=== PATIENT | male | born 2000 | race Caucasian/White ===

== ENCOUNTER 2019-06-04 09:32 | Emergency (ER) | payer OTHER ==
[~2019-06-04] VITALS: Ht 177.8 cm; Wt 72.1 kg
[2019-06-04 10:53] LABS: BASO % 0.6 % (0.0-1.0); EOS # 0.1 10^3/uL (0.0-0.5); EOS % 1.2 % (0.0-3.0); HEMATOCRIT 43.9 % (42.0-52.0); HEMOGLOBIN 14.7 g/dl (13.5-17.5); LYMPH % 38.7 % (24.0-44.0); MEAN CORPUSCULAR HEMOGLOBIN 29.6 pg (27.0-33.0); MEAN CORPUSCULAR HGB CONC 33.5 g/dl (32.0-36.5); MEAN CORPUSCULAR VOLUME 88.3 fl (80.0-96.0); MONO # 0.4 10^3/uL (0.0-0.8); MONO % 7.9 % (0.0-5.0); NEUTROPHILS # 2.6 10^3/uL (1.5-8.5); NEUTROPHILS % 51.4 % (36.0-66.0); PLATELET COUNT, AUTOMATED 247 10^3/uL (150-450); RED BLOOD COUNT 4.97 10^6/uL (4.30-6.10); WHITE BLOOD COUNT 5.1 10^3/uL (4.0-10.0)
[2019-06-04 11:15] LABS: ERYTHROCYTE SEDIMENTATION RATE 4 mm/hr (0-15)
[2019-06-04 11:17] LABS: BLOOD UREA NITROGEN 14 MG/DL (7-18); C REACTIVE PROTEIN QUANTITATIV < 0.30 MG/DL (0.00-0.30); CALCIUM LEVEL 9.4 MG/DL (8.5-10.1); CARBON DIOXIDE LEVEL 32 MEQ/L (21-32); CHLORIDE LEVEL 104 MEQ/L (98-107); CK-MB VALUE MASS < 1.0 NG/ML (<3.6); CPK CREATINE PHOSPHOKINASE 79 U/L (39-308); GLUCOSE, FASTING 83 MG/DL (70-100); MB/CK RELATIVE INDEX 1.27 (< OR =4); POTASSIUM SERUM 4.2 MEQ/L (3.5-5.1); SODIUM LEVEL 140 MEQ/L (136-145); TROPONIN I < 0.02 NG/ML (< 0.10)
--- NOTE | 2019-06-04 11:44 | REP ---
Chest x-ray: Two views. History: Chest pain . Comparison study: No comparison . Findings: The lungs are well inflated and free of infiltrate. The pleural angles are sharp. The heart size is normal. Pulmonary vasculature is not increased. No significant bony abnormality is seen. Impression: Negative chest x-ray. Electronically Signed by Carroll Peerz MD 06/04/2019 11:35 A
[2019-06-04] MEDS ORDERED: IBUP80TA PO (12:15)
[2019-06-04 12:24] VITALS: BP 120/78
--- NOTE | 2019-06-04 15:23 | ECGEPIP ---
[facility] [place] - ED Test Date: 2019-06-04 Pat Name: HAYDE MORATAYA Department: Room: - Gender: Male [employer]: : [id number] Requested By: Alma Abraham Order Number: [id number] Reading MD: Saroj Mari Measurements Intervals [place] Rate: 77 P: 71 [place]: 152 QRS: 91 QRSD: 88 T: 57 QT: 343 QTc: 389 Interpretive Statements SINUS RHYTHM BORDERLINE RIGHT AXIS DEVIATION Comparison tracing not on file Electronically Signed on 06-04-2019 15:23:22 EST by Saroj Mari
== END 2019-06-04 12:26 | disposition home or self-care (01) ==
LOC: M ED 09:32
DX: R07.89 Other chest pain (principal)

== ENCOUNTER → 2019-07-18 | Outpatient (CLI) | payer OTHER ==
[~2019-07-18] MED LIST: IBUP80TA PO
--- NOTE | 2019-07-19 10:27 | ECHO ---
DATE OF SERVICE: 07/18/2019 REFERRING PROVIDER: Dr. Yinka Sanabria PATIENT LOCATION: Outpatient. REASON FOR STUDY: Recurrent pericarditis. 2D MEASUREMENTS: IVS: 0.9 cm LV: 4.6 cm LVPW: 1.0 cm LA: 3.0 cm Aorta: 3.1 cm RV: 2.3 cm IVC: 1.7 cm DOPPLER MEASUREMENTS: Peak velocity across the aortic valve: 1.1 m/s Peak velocity across the LVOT: 0.9 m/s Mitral E: 0.81 Mitral A: 0.68 with a ratio of 1.2 Maximum tricuspid valve velocity: 2.4 m/s 2D COMMENTS: 1. Normal left ventricular size, wall thickness, and normal global left ventricular systolic function. The estimated left ventricular systolic ejection fraction is 60-65%. 2. Normal left atrium. Normal right atrium and right ventricle. 3. The atrial septum appeared to be normal without evidence of defect or shunt. 4. Normal aortic root. 5. No pericardial effusion seen. 6. The aortic valve, mitral valve, tricuspid valve, and pulmonic valve appeared to be normal. The proximal pulmonary artery branches also appeared to be normal. 7. The inferior vena cava was normal in size, central venous pressure is most likely normal. DOPPLER: It detects mild tricuspid regurgitation and trace pulmonic regurgitation. The calculated pulmonary artery systolic pressure is about 30 mmHg. Assessment of the left ventricular diastolic function was normal. IMPRESSION: 1. Normal global left ventricular systolic and diastolic function. 2. Mild tricuspid regurgitation. Pulmonary artery systolic pressure is about normal. 3. Trace pulmonic regurgitation. 4. No pericardial effusion seen. MTDD
== END ==
LOC: M CARPUL 09:47
PROVIDERS: ATTEND Family Medicine
DX: I30.9 Acute pericarditis, unspecified (principal)